=== PATIENT | male | born 1970 | race Caucasian/White ===

== ENCOUNTER 2020-10-08 01:49 | Inpatient (IN) ==
[2020-10-08 02:25] LABS: Urine Appearance Clear; Urine Bilirubin Negative (Negative); Urine Blood 1+ (Negative); Urine Color Straw; Urine Glucose Negative (Negative); Urine Ketones Negative (Negative); Urine Nitrite Negative (Negative); Urine Protein Negative (Negative); Urine Specific Gravity 1.005 (1.010-1.030); Urine Urobilinogen Negative (Negative)
[2020-10-08 02:29] LABS: ABS Eosinophils 0.2 10^3/ul (0-0.6); ABS Lymphocytes 1.9 10^3/ul (1.0-4.8); ABS Monocytes 0.7 10^3/ul (0-0.8); ABS Neutrophils 4.4 10^3/ul (1.5-7.7); Eosinophil % 2.2 %; Hematocrit 50 % (42-52); Hemoglobin 17.3 g/dL (14.0-18.0); Lymphocyte % 26.1 %; Mean Corpuscular HGB Conc 35 g/dL (31-36); Mean Corpuscular Hemoglobin 32 pg (27-31); Mean Corpuscular Volume 92 fL (80-94); Mean Platelet Volume 7.1 fL (7.4-10.4); Platelet Count 323 10^3/uL (150-450); Red Blood Count 5.43 10^6 /uL (4.18-5.48); Red Cell Distribution Width 13 % (10-15); White Blood Count 7.2 10^3/uL (3.5-10.8)
[2020-10-08 02:30] LABS: Urine Benzodiazepine Screen None Detected (None Detect); Urine Cannabinoids Screen None Detected (None Detect); Urine Opiates Screen None Detected (None Detect)
[2020-10-08 02:44] LABS: ALT 42 U/L (7-52); AST 23 U/L (13-39); Albumin 4.3 g/dL (3.2-5.2); Albumin/Globulin Ratio 1.3 (1-3); Alkaline Phosphatase 67 U/L (34-104); Anion Gap 9 mmol/L (2-11); BUN/Creatinine Ratio 13.3 (8-20); Blood Urea Nitrogen 13 mg/dL (6-24); CO2 Carbon Dioxide 24 mmol/L (22-32); Calcium 9.2 mg/dL (8.6-10.3); Chloride 103 mmol/L (101-111); Globulin 3.4 g/dL (2-4); Glucose 99 mg/dL (70-100); Sodium 136 mmol/L (135-145); Total Protein 7.7 g/dL (6.4-8.9)
[2020-10-08 03:10] LABS: Acetaminophen < 15 mcg/mL; Alcohol, S 195 mg/dL (<10); Salicylate < 2.50 mg/dL (<30)
[2020-10-08 03:25] LABS: TSH Ultra Thyroid Stim Horm 1.44 mcIU/mL (0.34-5.60)
[2020-10-08 05:19] LABS: Urine Bacteria Absent (Absent); Urine Red Blood Cell Trace(0-2/hpf) (Absent); Urine White Blood Cell Trace(0-5/hpf) (Absent)
[2020-10-08] MEDS ORDERED: Al Hydrox/Mg Hydrox/Simet LIQ 30 ML UDC PO PRN (14:15)
[2020-10-08] MEDS ORDERED: LORazepam PO 0-6 for WAM protocol PO SCH (15:00)
[2020-10-08] MEDS ORDERED: LORazepam IM 0-6 mg for WAM protocol IM SCH (15:00)
[2020-10-09 08:43] LABS: HDL Cholesterol 51.7 mg/dL
[2020-10-09 08:47] VITALS: BP 128/88
[2020-10-09] MEDS ORDERED: Vitamin THERAPEUTIC TAB PO SCH (09:00)
== END 2020-10-09 15:31 | disposition home or self-care (01) | DRG 882 ==
LOC: ED 01:49 → BSU 15:00
PROVIDERS: ADMIT Psychiatry & Neurology Psychiatry; ATTEND Psychiatry & Neurology Psychiatry